=== PATIENT | female | born 1950 | race Caucasian/White ===

== ENCOUNTER 2016-06-29 20:49 | Emergency (ER) | payer MEDICARE ==
--- NOTE | 2016-06-29 22:03 | ED ---
General Adult HPI - General Chief complaint: Arrhythmia/Palpitations Stated complaint: Palpitations Time Seen by Provider: 06/29/16 21:45 Source: patient, RN notes reviewed Mode of arrival: wheelchair Limitations: no limitations - History of Present Illness Initial comments: Patient is a pleasant 66-year-old female returning to the emergency department palpitations. Patient had an episode prior to arrival. Patient feels normal at this time. symptoms were short lasting.Patient felt like her heart was skipping around. no chest pain. No dyspnea. Patient has had some asthma problems recently however no dyspnea at this time. Symptoms resolved using her inhaler. Patient states she questions of her symptoms could be related to drinking coffee which she does not normally do or using her inhaler. No leg pain or leg swelling. Patient has been somewhat fatigued today. - Related Data Home Medications Medication Instructions Recorded Confirmed Albuterol Sulfate [Proair 1 puff PO TID PRN 06/29/16 06/29/16 Respiclick] Meclizine [Antivert] 12.5 mg PO BID PRN 06/29/16 06/29/16 Methocarbamol [Robaxin] 250 mg PO BID PRN 06/29/16 06/29/16 Metoprolol Tartrate 25 mg PO HS 06/29/16 06/29/16 Montelukast [Singulair] 10 mg PO HS 06/29/16 06/29/16 Omeprazole 20 mg PO HS 06/29/16 06/29/16 Rivaroxaban [Xarelto] 20 mg PO HS 06/29/16 06/29/16 Allergies Allergy/AdvReac Type Severity Reaction Status Date / Time codeine AdvReac Nausea Verified 06/29/16 22:12 Review of Systems ROS Statement: Those systems with pertinent positive or pertinent negative responses have been documented in the HPI. ROS Other: All systems not noted in ROS Statement are negative. Constitutional: Denies: fever Eyes: Denies: eye pain ENT: Denies: ear pain Respiratory: Denies: cough Cardiovascular: Reports: palpitations. Denies: chest pain Endocrine: Reports: fatigue Gastrointestinal: Denies: abdominal pain Genitourinary: Denies: urgency Musculoskeletal: Denies: back pain Skin: Denies: rash Neurological: Denies: weakness Past Medical History Past Medical History: Atrial Fibrillation, Asthma Additional Past Medical History / Comment(s): Limes Disease, History of Any Multi-Drug Resistant Organisms: None Reported Past Surgical History: Appendectomy, Hysterectomy, Tonsillectomy Past Psychological History: No Psychological Hx Reported Smoking Status: Former smoker Past Alcohol Use History: Rare Past Drug Use History: None Reported General Exam Limitations: no limitations General appearance: alert, in no apparent distress Head exam: Present: atraumatic Eye exam: Present: normal appearance, PERRL ENT exam: Present: normal oropharynx Neck exam: Present: normal inspection Respiratory exam: Present: normal lung sounds bilaterally. Absent: wheezes, rales Cardiovascular Exam: Present: regular rate, normal rhythm. Absent: irregular rhythm GI/Abdominal exam: Present: soft. Absent: tenderness Extremities exam: Present: normal inspection. Absent: pedal edema, calf tenderness Neurological exam: Present: alert Psychiatric exam: Present: normal affect, normal mood Skin exam: Absent: rash Course Vital Signs 06/29/16 21:01 Temperature 98.1 F Pulse Rate 76 Respiratory 18 Rate Blood Pressure 138/79 O2 Sat by Pulse 96 Oximetry - Reevaluation(s) Reevaluation #1: 06/29/16 22:02 Patient recommended blood work and chest x-ray. Patient does not want blood work at this time and would like just have chest x-ray and discharged. Patient states she can see her doctor tomorrow and have blood work done then. EKG Findings - EKG Comments: EKG Findings:: Normal sinus rhythm at 72. KS 144. QRS 98. QT 418. QTC 457 left axis. Q wave in aVF. No acute ST change. Medical Decision Making - Medical Decision Making Patient reevaluated and resting comfortably in bed. Patient also advised to follow-up with coagulating bath operator. Patient states previously she is seen Dr. Bonds. - Radiology Data Radiology results: image reviewed (Chest x-ray shows possible mild pulmonary fibrosis) Disposition Clinical Impression: Palpitations Disposition: HOME SELF-CARE Condition: Stable Instructions: Palpitations (ED) Additional Instructions: Please follow-up to primary care physician tomorrow for blood work and further evaluation. Please also follow-up with pulmonary for evaluation for possible pulmonary fibrosis. Return for difficulty breathing, uncontrolled heart rate, increased heart rate, chest pain, worsening symptoms or other concerns. Referrals: Kami Mclain MD [Primary Care Provider] - 1-2 days Petros Bonds MD [STAFF PHYSICIAN] - 1-2 days
--- NOTE | 2016-06-29 22:11 | XR ---
EXAMINATION TYPE: XR chest 2V DATE OF EXAM: 06/29/2016 10:03 PM COMPARISON: 09/08/2012 HISTORY: Palpitations TECHNIQUE: Frontal and lateral views of the chest are obtained. FINDINGS: There is slight blunting of left costophrenic angle. There is probably a hiatal hernia. Th ere is slight coarsening of interstitial markings. There is no heart failure. Thoracic aorta is ather omatous. There are no hilar masses. The bony thorax appears intact. IMPRESSION: There is some mild pleural scarring at the lateral left lung base. Small hiatal hernia. Mild pulmonary fibrosis. Fibrotic changes are new compared to last exam.
[2016-06-29 22:35] VITALS: BP 147/78; PULSE 74; RESP 20; TEMP 97.9
== END 2016-06-29 22:35 | disposition home or self-care (01) ==
LOC: EC 20:49
DX: R00.2 Palpitations (principal); R53.1 Weakness; I48.91 Unspecified atrial fibrillation; J45.909 Unspecified asthma, uncomplicated; Z87.891 Personal history of nicotine dependence; Z79.899 Other long term (current) drug therapy; Z88.5 Allergy status to narcotic agent
CPT/HCPCS: 71020; 93005; 99285

== ENCOUNTER → 2016-07-21 | Outpatient (CLI) | payer MEDICARE ==
--- NOTE | 2016-07-23 12:02 | MM ---
Reason for exam: screening (asymptomatic). Last mammogram was performed 2 years ago. History: Patient is postmenopausal. Benign excisional biopsy of the left breast. Took hormonal contraceptives for 8 years. Physical Findings: A clinical breast exam by your physician is recommended on an annual basis and results should be correlated with mammographic findings. MG 3D Screening Mammo W/Cad Bilateral CC and MLO view(s) were taken. Prior study comparison: July 08, 2014, bilateral MG screening mammo w CAD. There are scattered fibroglandular densities. No significant changes when compared with prior studies. ASSESSMENT: Negative, BI-RAD 1 RECOMMENDATION: Routine screening mammogram of both breasts in 1 year.
== END | disposition home or self-care (01) ==
LOC: RADMAMWWP 16:17
PROVIDERS: ATTEND Internal Medicine
DX: Z12.31 Encounter for screening mammogram for malignant neoplasm of breast (principal)
CPT/HCPCS: 77063; G0202

== ENCOUNTER → 2016-08-05 | Outpatient (CLI) | payer MEDICARE ==
--- NOTE | 2016-08-05 13:37 | CT ---
EXAMINATION TYPE: CT chest wo con DATE OF EXAM: 08/05/2016 1:18 PM COMPARISON: 09/09/[address] chest without contrast May 15, 2010 HISTORY: Cough, shortness of breath CT DLP: [address] of the chest was performed with lung and mediastinal window settings submitted. The la ck of contrast limits evaluation of the vascular, mediastinal and parenchymal structures including th e upper abdomen. LUNGS: The lungs are clear and free of infiltrate. No atelectasis. Multiple subpleural pulmonary nodu les are unchanged relative to 2011. 4 mm parenchymal nodule right upper lobe appears to be new. No ev idence for pulmonary mass. No pleural effusion. No CT evidence of interstitial lung disease. MEDIASTINUM/IRAM: Thoracic aorta is of normal caliber with limited evaluation given lack of contrast . The heart is not enlarged. No evidence for mediastinal mass. No lymph nodes greater than 1cm. UPPER ABDOMEN: Sliding-type hiatal hernia noted. Small gallstones identified. OTHER: Prominent left axillary lymph node at 1.1 cm. IMPRESSION: 1. Stable subpleural nodularity unchanged from prior examination. New small nonspecific nodule right upper lobe. 2. Mild hyperinflation compatible with COPD. 3. Hiatal hernia. 4. Small gallstones. 5. Mildly prominent left axillary lymph node.
== END | disposition home or self-care (01) ==
LOC: RADCTMAIN 12:58
PROVIDERS: ATTEND Internal Medicine Pulmonary Disease
DX: J44.9 Chronic obstructive pulmonary disease, unspecified (principal); R91.1 Solitary pulmonary nodule; R91.8 Other nonspecific abnormal finding of lung field; K44.9 Diaphragmatic hernia without obstruction or gangrene; R59.0 Localized enlarged lymph nodes
CPT/HCPCS: 71250

== ENCOUNTER → 2017-08-16 | Outpatient (CLI) | payer MEDICARE ==
--- NOTE | 2017-08-16 17:54 | CT ---
EXAMINATION TYPE: CT chest wo con DATE OF EXAM: 08/16/2017 COMPARISON: 08/05/2016 HISTORY: Cough. CT DLP: 672 mGycm. Automated Exposure Control for Dose Reduction was Utilized. TECHNIQUE: CT scan of the thorax is performed without IV contrast. FINDINGS: There is a faint 6 mm nodule adjacent to the pleura in the anterior right middle lobe. There is simil ar nodule in the lateral right lower lobe. There is a 1 cm subpleural nodule at the right posterior l rosa m base. There is no pleural effusion. There is no evidence of a pulmonary mass. There is a 5 mm non calcified faint nodule in the posterior segment of the left upper lobe. There is a 1.4 cm pretracheal lymph node. There are no hilar masses. Thoracic aorta shows mild atheromatous change. There is no an eurysm. Heart size is normal. There is no pericardial effusion. There is hiatal hernia. There is dege nerative spurring in the thoracic spine. I see no bony destructive process. There are bilateral axill luz lymph nodes measure up to 2 cm. IMPRESSION: Small bilateral pulmonary nodules as above. These appears stable compared to old exam. Th is is consistent with benign disease. Stable pretracheal lymph node. Stable axillary adenopathy. There is a new 3 x 1 cm area of subpleural interstitial infiltrate in the superior segment right lowe r lobe compared to old exam. This is consistent with inflammatory disease.
== END | disposition home or self-care (01) ==
LOC: RADCTMAIN 16:12
PROVIDERS: ATTEND Internal Medicine
DX: R91.8 Other nonspecific abnormal finding of lung field (principal); R59.0 Localized enlarged lymph nodes; R06.02 Shortness of breath
CPT/HCPCS: 71250

== ENCOUNTER → 2018-08-17 | Outpatient (CLI) | payer MEDICARE ==
--- NOTE | 2018-08-17 14:32 | CT ---
EXAMINATION TYPE: CT chest wo con DATE OF EXAM: 08/17/2018 COMPARISON: 08/16/2017 HISTORY: Follow up known lung nodules. CT DLP: 608 mGycm, Automated exposure control for dose reduction was used. CONTRAST: Performed injected with 0 mL of Isovue 300. TECHNIQUE: Axial images were obtained at 5 mm thick sections. Reconstructed images are reviewed on [employer] computer in the coronal plane. FINDINGS: Portion of the thyroid visualized is normal. There is a 0.6 cm nodule in the periphery of the left lower lung field. Series [address] eural-based densities present on the posterior medial right lung base measuring 0.8 cm, series 3 imag e 39 pleural-based nodular density in the right middle lobe measures 0.8 cm. Series 3 image 27. These densities appear to be present previously and are stable. No enlarged mediastinal or hilar adenopathy is evident. The ascending aorta diameter at the level o f the main pulmonary artery is 3.2 cm. The main pulmonary artery diameter at the bifurcation is 2.[address] sections are obtained through the upper abdomen. Moderate size hiatal hernia is present. U pper abdomen is unremarkable. Small splenule is at the splenic hilum IMPRESSIONS: 1. Small stable pleural-based nodules within the periphery of the bilateral lower lung murphy
== END | disposition home or self-care (01) ==
LOC: RADCTMAIN 11:34
PROVIDERS: ATTEND Internal Medicine
DX: R91.8 Other nonspecific abnormal finding of lung field (principal); R06.02 Shortness of breath
CPT/HCPCS: 71250

== ENCOUNTER → 2018-09-07 | Outpatient (CLI) | payer MEDICARE ==
--- NOTE | 2018-09-11 09:17 | MM ---
Reason for exam: screening (asymptomatic). Last mammogram was performed 2 years and 2 months ago. History: Patient is postmenopausal. Benign excisional biopsy of the left breast. Took hormonal contraceptives for 8 years. Physical Findings: A clinical breast exam by your physician is recommended on an annual basis and results should be correlated with mammographic findings. MG 3D Screening Mammo W/Cad Bilateral CC and MLO view(s) were taken. Prior study comparison: July 21, 2016, bilateral MG 3d screening mammo w/cad. July 08, 2014, bilateral MG screening mammo w CAD. There are scattered fibroglandular densities. No significant changes when compared with prior studies. ASSESSMENT: Negative, BI-RAD 1 RECOMMENDATION: Routine screening mammogram of both breasts in 1 year.
== END | disposition home or self-care (01) ==
LOC: RADMAMWWP 10:25
PROVIDERS: ATTEND Internal Medicine
DX: Z12.31 Encounter for screening mammogram for malignant neoplasm of breast (principal)
CPT/HCPCS: 77063; 77067

== ENCOUNTER → 2019-11-12 | Outpatient (CLI) | payer MEDICARE ==
--- NOTE | 2019-11-14 08:41 | MM ---
Reason for exam: screening (asymptomatic). Last mammogram was performed 1 year and 2 months ago. History: Patient is postmenopausal. Benign excisional biopsy of the left breast. Took hormonal contraceptives for 8 years. Physical Findings: A clinical breast exam by your physician is recommended on an annual basis and results should be correlated with mammographic findings. MG 3D Screening Mammo W/Cad Bilateral CC and MLO view(s) were taken. Prior study comparison: September 07, 2018, bilateral MG 3d screening mammo w/cad. July 21, 2016, bilateral MG 3d screening mammo w/cad. There are scattered fibroglandular densities. Benign appearing bilateral calcifications. No significant changes when compared with prior studies. ASSESSMENT: Benign, BI-RAD 2 RECOMMENDATION: Routine screening mammogram of both breasts in 1 year.
== END | disposition home or self-care (01) ==
LOC: RADMAMWWP 11:03
PROVIDERS: ATTEND Internal Medicine
DX: Z12.31 Encounter for screening mammogram for malignant neoplasm of breast (principal)
CPT/HCPCS: 77063; 77067

== ENCOUNTER → 2019-11-12 | Outpatient (CLI) | payer MEDICARE ==
--- NOTE | 2019-11-12 12:41 | CT ---
EXAMINATION TYPE: CT chest wo con DATE OF EXAM: 11/12/2019 COMPARISON: 08/17/2018 HISTORY: Follow-up pulmonary nodules. Unenhanced CT of the chest was performed with lung and mediastinal window settings submitted. The la ck of contrast limits evaluation of the vascular, mediastinal and parenchymal structures including th e upper abdomen. LUNGS: The lungs are clear and free of infiltrate. No atelectasis. 8 mm Pleural-based nodule right mi ddle lobe anteriorly image 29 is stable. Stable 8 mm pulmonary nodule right medial lung base image 36 . Right upper lobe pulmonary nodule image 16 measures 5 mm and is stable. Additional stable sub-5 mm pulmonary nodules seen bilaterally. No new nodules seen. No pleural effusion. No CT evidence of inte rstitial lung disease. MEDIASTINUM/IRAM: Thoracic aorta is of normal caliber with limited evaluation given lack of contrast . The heart is not enlarged. No evidence for mediastinal mass. No lymph nodes greater than 1cm. UPPER ABDOMEN: No significant abnormality is seen. OTHER: Moderate fixed hiatal hernia. IMPRESSION: 1. Stable nonspecific pulmonary nodularity.
== END | disposition home or self-care (01) ==
LOC: RADCTMAIN 11:34
PROVIDERS: ATTEND Internal Medicine
DX: R91.1 Solitary pulmonary nodule (principal)
CPT/HCPCS: 71250

== ENCOUNTER → 2020-11-12 | Outpatient (CLI) | payer MEDICARE ==
--- NOTE | 2020-11-12 14:20 | CT ---
EXAMINATION TYPE: CT chest wo con DATE OF EXAM: 11/12/2020 COMPARISON: Prior chest CT November 12, 2019 and older CTs back to 2011 HISTORY: Pulmonary nodule, Thoracic ascending aortic aneurysm CT DLP: 543.6 mGycm. Automated Exposure Control for Dose Reduction was Utilized. TECHNIQUE: CT scan of the thorax is performed without IV contrast. FINDINGS: LUNGS: Stable 8 mm subpleural nodule right mid lung anteriorly axial image 30 from 2011 study. Stable 10 mm medial right lung base subpleural nodule axial image 41 from 2011 study. Central 7 x 5 mm righ t upper lobe nodule axial image 19 unchanged from most recent CT not seen in 2011 study slowly growin g over more recent studies. Stable 4 to 5 mm subpleural nodule right upper low back axial image 14 fr om older studies. Stable 4 to 5 mm nodule posterior left upper lobe axial image 14 from 2018 study. S table 4 to 5 mm lateral right lower lobe nodule axial image 43. Moderate scattered pulmonary fibrotic changes in the upper lungs right greater than left redemonstrat ed not significantly changed from most recent CT. There is no pleural effusion or pneumothorax seen. The tracheobronchial tree is patent. No new greater than 5 mm nodules. MEDIASTINUM: Lack of IV contrast is noted to limit evaluation for mediastinal and especially hilar ad enopathy. There are no definitive new greater than 1 cm mediastinal lymph nodes. No pericardial eff usion is seen. Stable mild cardiomegaly. Stable prominent right and left pulmonary arteries suggestin g underlying pulmonary artery hypertension. Early moderate size hiatal hernia slightly more prominent from prior studies OTHER: There is S-shaped scoliosis with multilevel spurring of the spine that is redemonstrated. IMPRESSION: Slow growing 7 x 5 mm right upper lobe nodule advises continued monitoring. Additional sc attered nodules unchanged from [address] CT. Adjh-ak-[id number] parenchymal fibrotic changes redemonstrated without significant interval change. No acute pulmonary process evident.
--- NOTE | 2020-11-13 11:13 | MM ---
Reason for exam: screening (asymptomatic). Last mammogram was performed 1 year ago. History: Patient is postmenopausal. Benign excisional biopsy of the left breast. Took hormonal contraceptives for 8 years. Physical Findings: A clinical breast exam by your physician is recommended on an annual basis and results should be correlated with mammographic findings. MG 3D Screening Mammo W/Cad Bilateral CC and MLO view(s) were taken. Prior study comparison: November 12, 2019, bilateral MG 3d screening mammo w/cad. There are scattered fibroglandular densities. There is no discrete abnormality. No significant changes when compared with prior studies. ASSESSMENT: Negative, BI-RAD 1 RECOMMENDATION: Routine screening mammogram of both breasts in 1 year.
== END | disposition home or self-care (01) ==
LOC: RADMAMWWP 12:49
PROVIDERS: ATTEND Internal Medicine
DX: Z12.31 Encounter for screening mammogram for malignant neoplasm of breast (principal); Z78.0 Asymptomatic menopausal state; I71.2 Thoracic aortic aneurysm, without rupture
CPT/HCPCS: 71250; 77063; 77067

== ENCOUNTER → 2023-01-24 | Outpatient (CLI) | payer MEDICARE ==
--- NOTE | 2023-01-25 09:30 | MM ---
Reason for Exam: Screening (asymptomatic). Last mammogram was performed 1 year(s) and 2 month(s) ago. Patient History: Menarche at age 12. First Full-Term at age 18. Left ovary removed at age 30. Right ovary removed at age 30. Hysterectomy at age 30. Postmenopausal. Patient used Hormonal Contraceptives for 8 years. Benign Excisional Biopsy on the left side. Risk Values: Veronique 5 year model risk: 1.5%. NCI Lifetime model risk: 3.9%. Prior Study Comparison: 11/12/2019 Bilateral Screening Mammogram, [facility]. 11/12/2020 Bilateral Screening Mammogram, [facility]. 11/13/2021 Bilateral MG 3D screening mammo w/cad, [facility]. Tissue Density: There are scattered fibroglandular densities. Findings: Analyzed By CAD. Current appears symmetrical and stable. A few scattered benign round calcifications are present bilaterally. No significant interval changes are evident. There appears to be some nodularity within the left upper outer mid left breast. This measures 0.4 cm transverse located 9 cm from nipple. Findings appear stable from comparisons. No suspicious groups of microcalcifications, spiculated or lobular masses, architectural distortion or other secondary signs of malignancy are mammographically apparent. Overall Assessment: Benign, BI-RAD 2 Management: Screening Mammogram of both breasts in 1 year. A negative mammogram report should not preclude additional follow up of suspicious palpable abnormalities. Patient should continue monthly self breast exam. A clinical breast exam by your physician is recommended on an annual basis and results should be correlated with mammographic findings. Electronically signed and approved by: Filipe Plummer D.O. Radiologis
== END | disposition home or self-care (01) ==
LOC: RADMAMWWP 07:02
PROVIDERS: ATTEND Internal Medicine
DX: Z12.31 Encounter for screening mammogram for malignant neoplasm of breast (principal); Z78.0 Asymptomatic menopausal state
CPT/HCPCS: 77063; 77067

== ENCOUNTER → 2023-01-24 | Outpatient (CLI) | payer MEDICARE ==
--- NOTE | 2023-01-24 08:38 | CT ---
EXAMINATION TYPE: CT chest wo con CT DLP: 491.1 mGycm, Automated exposure control for dose reduction was used. DATE OF EXAM: 01/24/2023 8:22 AM COMPARISON: Multiple CT chest with most recent 11/13/2021 CLINICAL INDICATION:Female, 72 years old with history of R91.8 nodules; PHH, lung nodule TECHNIQUE: Multiple axial images were obtained through the chest without IV contrast. Lack of IV or o ral contrast limits evaluation of solid and hollow organ viscera. . Coronal and sagittal reformats re viewed. FINDINGS: LUNGS/ PLEURA: Stable subpleural 1 cm medial right lower lobe pulmonary nodule (series 4, image 34). Stable right up per lobe 8 mm pulmonary nodule (series 4, image 18). Previously 5 mm in 2017. Stable anterior right m idlung subpleural 8 mm pulmonary nodule (series 4, image 32). Previously 6 mm in 2017. Stable right a nterior midlung subpleural 5 mm pulmonary nodule (series 4, image 36). Stable 4 mm nodular density al sebastien the left major fissure favored to represent an intrafissural lymph node (series 4, image 10). No new pulmonary nodules. Several of these nodules are stable from most recent exam but have slowly incr eased in size from 2017. Moderate scattered pulmonary fibrotic changes are most probably seen within the upper lungs with righ t greater than left. No pleural effusion or pneumothorax. AIRWAY: Patent and unremarkable. HEART: Heart is mildly enlarged for size. There is mild coronary artery calcifications. MEDIASTINUM: No gross evidence of adenopathy. VASCULATURE: No aortic aneurysm. Scattered atherosclerotic calcification of the aorta. MUSCULOSKELETAL: No acute osseous abnormalities. Vertebral augmentation for compression fractures inv olving the T8, T9, T10 vertebral bodies demonstrated. Chronic appearing central compression deformity of the L2 vertebral body. Slight anterior wedge compression deformity of the T7 vertebral body. SOFT TISSUES/LYMPH NODES: Unremarkable. LOWER NECK: No significant findings. UPPER ABDOMEN: Moderate-sized hiatal hernia redemonstrated. IMPRESSION: 1. Stable scattered pulmonary nodules from prior examination however a few have slowly been growing since 2017. Continued monitoring is recommended. 2. Mild to moderate parenchymal fibrotic changes redemonstrated. 3. Moderate hiatal hernia. 4. Mild cardiomegaly.
== END | disposition home or self-care (01) ==
LOC: RADCTMAIN 07:40
PROVIDERS: ATTEND Internal Medicine Pulmonary Disease
DX: J45.909 Unspecified asthma, uncomplicated (principal); J84.10 Pulmonary fibrosis, unspecified; K44.9 Diaphragmatic hernia without obstruction or gangrene; I51.7 Cardiomegaly; R91.8 Other nonspecific abnormal finding of lung field
CPT/HCPCS: 71250

== ENCOUNTER → 2023-02-22 | Outpatient (CLI) | payer MEDICARE ==
[2023-02-22 10:16] LABS: INR 1.2 (<1.2); Partial Thromboplastin Time 31.1 sec (22.0-30.0); Prothrombin Time 12.9 sec (10.0-12.5)
[2023-02-22 15:59] LABS: ALT 87 U/L (8-44); AST 128 U/L (13-35); Albumin 4.3 g/dL (3.8-4.9); Albumin/Globulin Ratio 1.39 Ratio (1.60-3.17); Alkaline Phosphatase 121 U/L (41-126); BUN/Creat Ratio 13.44 Ratio (12.00-20.00); Basophils # (A) 0.05 X 10*3/uL (0.00-0.10); Basophils % (A) 0.8 %; Blood Urea Nitrogen 12.1 mg/dL (9.0-27.0); Calcium 10.1 mg/dL (8.7-10.3); Carbon Dioxide 28.3 mmol/L (21.6-31.8); Chloride 103 mmol/L (96-109); Eosinophils # (A) 0.07 X 10*3/uL (0.04-0.35); Eosinophils % (A) 1.2 %; Globulin 3.1 g/dL (1.6-3.3); Glucose 113 mg/dL (70-110); HCT 45.3 % (37.2-46.3); HGB 14.1 g/dL (12.0-15.0); Lymphocytes # (A) 1.39 X 10*3/uL (0.90-5.00); Lymphocytes % (A) 23.4 %; MCH 27.2 pg (27.0-32.0); MCHC 31.1 g/dL (32.0-37.0); MCV 87.3 FL (80.0-97.0); Mean Platelet Volume 9.8 FL (9.5-12.2); Monocytes % (A) 8.4 %; NRBC Per 100 WBC 0 X 10*3/uL (0.00-0.01); Neutrophils # (A) 3.91 X 10*3/uL (1.80-7.70); Neutrophils % (A) 65.9 %; Platelet Count 268 X 10*3/uL (140-440); Potassium 4.7 mmol/L (3.5-5.5); RBC 5.19 X 10*6/uL (4.10-5.20); RDW 14.1 % (11.5-14.5); Sodium 142 mmol/L (135-145); Total Bilirubin 0.3 mg/dL (0.3-1.2); Total Protein 7.4 g/dL (6.2-8.2); WBC 5.94 X 10*3/uL (4.50-10.00)
== END | disposition home or self-care (01) ==
LOC: LABWHC1 09:06
PROVIDERS: ATTEND Orthopaedic Surgery
DX: Z01.812 Encounter for preprocedural laboratory examination (principal); D68.9 Coagulation defect, unspecified
CPT/HCPCS: 36415; 80053; 85025; 85610; 85730

== ENCOUNTER → 2023-06-08 | Outpatient (CLI) | payer MEDICARE ==
--- NOTE | 2023-06-08 15:12 | BD ---
EXAMINATION TYPE: Axial Bone Density DATE OF EXAM: 06/08/2023 CLINICAL HISTORY: 73 years old Female. ICD-10 CODE: N95.8 OTHER SPECIFIED MENOPAUSAL AND PERIMENOPAU SA Height: 63 Weight: 205 FRAX RISK QUESTIONS: Family History (Parent hip fracture): yes grandparents Glucocorticoids (More than 3mos): yes, for asthma and copd, prednisone (Ex: prednisone, prednisolone, methylprednisolone, dexamethasone, and hydrocortisone). History of Fracture in Adulthood: yes, spine Secondary Osteoporosis: yes 3. Menopause before 45: yes, hyst at 30 yrs old 5. Chronic liver disease: elevated enzymes Rheumatoid Arthritis: yes, and osteoarthritis RISK FACTORS HISTORY OF: yes, her spine, osteoporosis, height loss, Surgery to Spine to cement fx and stabilize spine Dec 2022 and then in 2009 MEDICATIONS: bp meds, cholesterol meds, calcium and multivitamin with D Osteoporosis Medications: nothing at this time EXAM MEASUREMENTS: Bone mineral densitometry was performed using the 3TIER System. Bone mineral density as measured about the Lumbar spine is: spinal fractures and surgical stabilization, 2009 and 2021 spine not scanned Bone mineral density about the R hip (g/cm2): 0.801 Bone mineral density about the L hip (g/cm2): 0.708 T Score values are as follows: -----R Neck: -2.5 -----L Neck: -2.7 -----R Total: -1.6 -----L Total: -2.4 Z Score values are as follows: -----R Neck: -1.3 -----L Neck: -1.5 -----R Total: -0.7 -----L Total: -1.4 Bone mineral density has: Decreased -7.9% since study of: 01.14.2010 Bone mineral density about the L Wrist (g/cm2): 0.502 T Score values are as follows: -----Dist. R+U: -3.7 -----Prox. R+U: -1.6 -----Radius total: -2.6 Z Score values are as follows: -----Dist. R+U: -1.6 -----Prox. R+U: 0.5 -----Radius total: -0.5 Bone mineral density is the first forearm scan for this patient. FRAX%s: The graph provided illustrates a 44.5% chance for a major osteoporotic fx and a 17.4% chance for the hips probability for fx in 10 years time. IMPRESSION: Osteoporosis (T Score less than -2.5). There is increased fracture risk and therapy is usually indicated based on age. Re-Screen 1-2 years. NOTE: T-SCORE=SD OF THE YOUNG ADULT MEAN.
== END | disposition home or self-care (01) ==
LOC: RADBDWWP 10:33
PROVIDERS: ATTEND Internal Medicine
DX: M81.0 Age-related osteoporosis without current pathological fracture (principal); N95.8 Other specified menopausal and perimenopausal disorders; M85.851 Other specified disorders of bone density and structure, right thigh
CPT/HCPCS: 77080

== ENCOUNTER → 2024-03-29 | Outpatient (CLI) | payer MEDICARE ==
[2024-03-29 10:54] LABS: African American GFR (CKD) 74 (>60 ml/min/1.73 sqM); Blood Urea Nitrogen 20 mg/dL (7-17); Non-African American GFR(CKD) 64 (>60 ml/min/1.73 sqM)
--- NOTE | 2024-03-29 12:13 | CT ---
CT chest without contrast TECHNIQUE: Lung nodule follow-up. COMPARISON: 01/24/2023. TECHNIQUE: Multiple axial images are obtained through the thorax without use of IV contrast material. FINDINGS: There are mild emphysematous changes with an upper lobe predominance. There is an 8.8 mm right upper lobe nodule which has increased in size from 7.8 mm. Possibility of a cyst slow the possibility of a slow growing neoplastic nodule is not excluded and PET scan is recomme nded for further evaluation. There are multiple stable pleural based nodules in both lungs. There is no airspace consolidation There is no pleural effusion or pneumothorax. The great vessel chest are normal and there is no mediastinal, hilar or axillary adenopathy. Limited scanning through the upper abdomen reveals no gross abnormality. There've been multiple vertebral plasties in the lower thoracic spine. There is a stable mild bandar gama fracture in the upper lumbar spine There is no new compression fracture.. IMPRESSION: 1. Possible mild interval growth in right upper lobe pulmonary nodules as described above. PET scan i s recommended to exclude malignancy. 2 mild emphysematous changes. 3. Multiple stable subpleural parenchymal nodules. 4. No acute cardiopulmonary disease. [facility], , 03/29/2024 12:11 PM
--- NOTE | 2024-04-02 07:48 | MM ---
Reason for Exam: Screening (asymptomatic). Last mammogram was performed 1 year(s) and 3 month(s) ago. Patient History: Menarche at age 12. First Full-Term at age 18. Left ovary removed at age 30. Right ovary removed at age 30. Hysterectomy at age 30. Postmenopausal. Patient used Hormonal Contraceptives for 8 years. Benign Excisional Biopsy on the left side. Risk Values: Veronique 5 year model risk: 1.5%. NCI Lifetime model risk: 3.5%. Prior Study Comparison: 11/12/2020 Bilateral Screening Mammogram, [facility]. 11/13/2021 Bilateral MG 3D screening mammo w/cad, [facility]. 01/24/2023 Bilateral MG 3D screening mammo w/cad, [facility]. Tissue Density: There are scattered areas of fibroglandular density. Findings: Analyzed By CAD. Right breast: There is no suspicious group of microcalcifications or new suspicious mass. Left breast: There is no suspicious group of microcalcifications or new suspicious mass. Benign-appearing calcifications left breast. Overall Assessment: Benign, BI-RAD 2 Management: Screening Mammogram of both breasts in [address] [facility] will attempt to contact patient to return for supplemental views and ultrasound if indicated. Patient should continue monthly self-breast exams. A clinical breast exam by your physician is recommended on an annual basis. This exam should not preclude additional follow-up of suspicious palpable abnormalities. Note on Veronique scores and lifetime risk: 1. A Veronique score greater than 3% is considered moderate risk. If this is the case, consider specialist referral to assess eligibility for a risk reducing agent. 2. If overall lifetime risk for the development of breast cancer is 20% or higher, the patient may qualify for future screening with alternating mammogram and breast MRI. [facility], , 04/02/2024 7:45 AM. Electronically signed and approved by: Edgardo Drake DO
== END | disposition home or self-care (01) ==
LOC: RADMAMWWP 09:57
PROVIDERS: ATTEND Internal Medicine
DX: Z12.31 Encounter for screening mammogram for malignant neoplasm of breast (principal); R91.1 Solitary pulmonary nodule; Z90.722 Acquired absence of ovaries, bilateral; Z78.0 Asymptomatic menopausal state; R92.323 Mammographic fibroglandular density, bilateral breasts; J43.9 Emphysema, unspecified
CPT/HCPCS: 82565; 84520; 77067; 77063; 71270; 36415; Q9967